=== PATIENT | female | born 1980 | race Two or more races ===

== ENCOUNTER 2017-09-22 19:57 | Inpatient (IN) | payer SELFPAY ==
[~2017-09-22] VITALS: Ht 154.9 cm; Wt 67.1 kg
[2017-09-22] MEDS ORDERED: Sodium Chloride 500ML 500 ML IV ONE (20:47)
[2017-09-22 21:30] VITALS: BP 116/55
[2017-09-22 21:35] LABS: HEMATOCRIT 23.9 % (37.0-47.0); MEAN CORPUSCULAR VOLUME 57 FL (80-99); PLATELET COUNT 345 K/UL (150-450); RED BLOOD COUNT 4.17 M/UL (4.20-5.40); RED CELL DISTRIBUTION WIDTH 17.3 % (11.6-14.8); WHITE BLOOD COUNT 6.4 K/UL (4.8-10.8)
[2017-09-22 21:37] LABS: APPEARANCE,URINE CLEAR; BILIRUBIN, URINE NEGATIVE (NEGATIVE); COLOR,URINE PALE YELLOW; GLUCOSE, URINE (UA) NEGATIVE (NEGATIVE); KETONES,URINE NEGATIVE (NEGATIVE); LEUKOCYTE ESTERASE ,URINE NEGATIVE (NEGATIVE); NITRITE,URINE NEGATIVE (NEGATIVE); PH,URINE 7 (4.5-8.0); PROTEIN,URINE NEGATIVE (NEGATIVE); UROBILINOGEN,URINE NORMAL MG/DL (0.0-1.0)
[2017-09-22 21:42] LABS: HEMOGLOBIN 6.5 G/DL (12.0-16.0)
[2017-09-22 21:44] LABS: ANION GAP 11 mmol/L (5-15); BLOOD UREA NITROGEN 9 mg/dL (7-18); CALCIUM 8.5 MG/DL (8.5-10.1); CARBON DIOXIDE 25 MMOL/L (21-32); CHLORIDE 99 MMOL/L (98-107); CREATININE 0.5 MG/DL (0.55-1.30); POTASSIUM 3.3 MMOL/L (3.5-5.1); SODIUM 135 MMOL/L (136-145)
[2017-09-22 21:49] LABS: ALANINE AMINOTRANSFERASE 17 U/L (12-78); ALBUMIN 3.7 G/DL (3.4-5.0); ALBUMIN/GLOBULIN RATIO 0.8 (1.0-2.7); ALKALINE PHOSPHATASE 68 U/L (46-116); ASPARTATE AMINO TRANSFERASE 15 U/L (15-37); BILIRUBIN,TOTAL 0.7 MG/DL (0.2-1.0)
--- NOTE | 2017-09-22 22:15 | Emergency Room Report ---
History of Present Illness General Chief Complaint: Abnormal Labs Source: Patient (Gurvinder Steiner MD) Present Illness HPI 37-year-old female presents ED for evaluation. Patient states she had abnormal labs done by her PMD. States she was anemic. States she's been feeling weak for the last week. Denies blood in stool. Denies vaginal bleeding. Denies vomiting. Denies any abdominal pain. No other aggravating relieving factors. Denies any other associated symptoms (Gurvinder Steiner MD) Allergies: Coded Allergies: No Known Allergies (Unverified , 09/22/17) Patient History Past Medical History: none Past Surgical History: none Pertinent Family History: none Social History: Denies: smoking, alcohol use, drug use Last Menstrual Period: aug 22 Now: Yes Immunizations: UTD Reviewed Nursing Documentation: PMH: Agreed; PSxH: Agreed (Gurvinder Steiner MD) Nursing Documentation-PMH Past Medical History: No Stated History (Gurvinder Steiner MD) Review of Systems All Other Systems: negative except mentioned in HPI (Gurvinder Steiner MD) Physical Exam Vital Signs Date Time Temp Pulse Resp B/P (MAP) Pulse Ox O2 Delivery O2 Flow Rate FiO2 09/22/17 20:04 97.5 86 18 122/59 98 Room Air 97.5 Sp02 EP Interpretation: reviewed, normal General Appearance: no apparent distress, alert, GCS 15, non-toxic Head: normocephalic, atraumatic Eyes: bilateral eye normal inspection, bilateral eye PERRL ENT: hearing grossly normal, normal pharynx, no angioedema, normal voice Neck: full range of motion, supple/symm/no masses Respiratory: chest non-tender, lungs clear, normal breath sounds, speaking full sentences Cardiovascular #1: regular rate, rhythm, no edema Cardiovascular #2: 2+ carotid (R), 2+ carotid (L), 2+ radial (R), 2+ radial (L) , 2+ dorsalis pedis (R), 2+ dorsalis pedis (L) Gastrointestinal: normal bowel sounds, non tender, soft, non-distended, no guarding, no rebound Rectal: deferred Genitourinary: normal inspection, no CVA tenderness Musculoskeletal: back normal, gait/station normal, normal range of motion, non- tender Neurologic: alert, oriented x3, responsive, motor strength/tone normal, sensory intact, speech normal Psychiatric: judgement/insight normal, memory normal, mood/affect normal, no suicidal/homicidal ideation Reflexes: 3+ bicep (R), 3+ bicep (L), 3+ tricep (R), 3+ tricep (L), 3+ knee (R) , 3+ knee (L) Skin: normal color, no rash, warm/dry, well hydrated Lymphatic: no adenopathy (Gurvinder Steiner MD) Medical Decision Making Diagnostic Impression: Primary Impression: Anemia Additional Impression: Labs Test 09/22/17 21:15 09/22/17 21:28 Urine Color Pale yellow Urine Appearance Clear Urine pH 7 (4.5-8.0) Urine Specific [place] 1.010 (1.005-1.035) Urine Protein Negative (NEGATIVE) Urine Glucose (UA) Negative (NEGATIVE) Urine Ketones Negative (NEGATIVE) Urine Occult Blood Negative (NEGATIVE) Urine Nitrite Negative (NEGATIVE) Urine Bilirubin Negative (NEGATIVE) Urine Urobilinogen Normal MG/DL (0.0-1.0) Urine Leukocyte Esterase Negative (NEGATIVE) Urine HCG, Qualitative Positive (NEGATIVE) White Blood Count 6.4 K/UL (4.8-10.8) Red Blood Count 4.17 M/UL (4.20-5.40) Hemoglobin 6.5 G/DL (12.0-16.0) Hematocrit 23.9 % (37.0-47.0) Mean Corpuscular Volume 57 FL (80-99) Mean Corpuscular Hemoglobin 15.7 PG (27.0-31.0) Mean Corpuscular Hemoglobin Concent 27.3 G/DL (32.0-36.0) Red Cell Distribution Width 17.3 % (11.6-14.8) Platelet Count 345 K/UL (150-450) Mean Platelet Volume 6.0 FL (6.5-10.1) Neutrophils (%) (Auto) % (45.0-75.0) Lymphocytes (%) (Auto) % (20.0-45.0) Monocytes (%) (Auto) % (1.0-10.0) Eosinophils (%) (Auto) % (0.0-3.0) Basophils (%) (Auto) % (0.0-2.0) Prothrombin Time 10.0 SEC (9.30-11.50) Prothromb Time International Ratio 1.0 (0.9-1.1) Activated Partial Thromboplast Time 24 SEC (23-33) Sodium Level 135 MMOL/L (136-145) Potassium Level 3.3 MMOL/L (3.5-5.1) Chloride Level 99 MMOL/L (98-107) Carbon Dioxide Level 25 MMOL/L (21-32) Anion Gap 11 mmol/L (5-15) Blood Urea Nitrogen 9 mg/dL (7-18) Creatinine 0.5 MG/DL (0.55-1.30) Estimat Glomerular Filtration Rate > 60 mL/min (>60) Glucose Level 97 MG/DL (74-106) Calcium Level 8.5 MG/DL (8.5-10.1) Total Bilirubin 0.7 MG/DL (0.2-1.0) Aspartate Amino Transf (AST/SGOT) 15 U/L (15-37) Alanine Aminotransferase (ALT/SGPT) 17 U/L (12-78) Alkaline Phosphatase 68 U/L (46-116) Total Protein 8.1 G/DL (6.4-8.2) Albumin 3.7 G/DL (3.4-5.0) Globulin 4.4 g/dL Albumin/Globulin Ratio 0.8 (1.0-2.7) (Gurvinder Steiner MD) ER Course I received signout from Dr. Steiner 37-year-old female, 8 weeks, sent for anemia by her doctor Patient denies any bloody stool, states that in the past her menstrual bleeding used to be heavy Complains of fatigue, no syncopal episodes no lightheadedness. Has never had a blood transfusion in the past Patient's hemoglobin noted to be 6.5, likely chronic iron deficiency anemia 2/2 to history. there is no hx of any active bleeding. Patient is hemodynamically stable with no active bleeding pt began transfusion in ED Patient will be admitted to [facility] DW Dr Morejon covering for Dr. Hendrickson Pelvic ultrasound Per radiology services manager, patient has IUP with good heart rate, 185 (Retino,Clairose M.D.) Last Vital Signs Date Time Temp Pulse Resp B/P (MAP) Pulse Ox O2 Delivery O2 Flow Rate FiO2 09/22/17 20:04 97.5 86 18 122/59 98 Room Air 97.5 Status: improved (Gurvinder Steiner MD) Disposition: ADMITTED INPATIENT Condition: Serious Gurvinder Steiner MD Sep 22, 2017 22:15 Samantha Plaza M.D. Sep 22, 2017 22:42
[2017-09-23] VITALS (7 sets, daily range): BP systolic 109–118; BP diastolic 52–63
[2017-09-23] MEDS ORDERED: NKM (00:44)
[2017-09-23 10:27] LABS: BASOPHILS % (AUTO) 0.7 % (0.0-2.0); EOSINOPHILS % (AUTO) 0.8 % (0.0-3.0); HEMATOCRIT 29.2 % (37.0-47.0); HEMOGLOBIN 8.3 G/DL (12.0-16.0); LYMPHOCYTES % (AUTO) 22.1 % (20.0-45.0); MEAN CORPUSCULAR VOLUME 63 FL (80-99); NEUTROPHILS % (AUTO) 65.4 % (45.0-75.0); PLATELET COUNT 317 K/UL (150-450); RED BLOOD COUNT 4.67 M/UL (4.20-5.40); RED CELL DISTRIBUTION WIDTH 22.8 % (11.6-14.8); WHITE BLOOD COUNT 6.2 K/UL (4.8-10.8)
[2017-09-23 10:43] LABS: ANION GAP 9 mmol/L (5-15); BLOOD UREA NITROGEN 8 mg/dL (7-18); CALCIUM 8.2 MG/DL (8.5-10.1); CARBON DIOXIDE 25 MMOL/L (21-32); CHLORIDE 104 MMOL/L (98-107); CREATININE 0.5 MG/DL (0.55-1.30); POTASSIUM 3.4 MMOL/L (3.5-5.1); SODIUM 138 MMOL/L (136-145)
--- NOTE | 2017-09-23 11:22 | Diagnostic Imaging Report ---
Indication: patient, vaginal bleeding, pain Technique: Transabdominal and transvaginal images Comparison: none Findings: Uterus measures 19.6 cm length by 7 cm AP. Within the endometrium, there is a gestational sac containing a pole. This demonstrates positive heart activity, heart rate 185 bpm. [employer]-rump length is 20 mm. This corresponds to an estimated gestational age of 8 weeks 4 days. No myometrial abnormality. Right ovary measures 3 cm in length. Left ovary measures 3 cm in length. No adnexal mass. No free cul-de-sac fluid Impression: 8 week 4 day, by crown-rump length measurements, single live anterior . Small subchorionic hemorrhage
[2017-09-23 11:30] LABS: FERRITIN 2 NG/ML (8-388)
[2017-09-23 11:32] LABS: % IRON SATURATION 4 % (15-50); IRON 17 ug/dL (50-175); TOTAL IRON BINDING CAPACITY 440 ug/dL (250-450)
--- NOTE | 2017-09-23 12:14 | History and Physical ---
History of Present Illness General Date patient seen: Sep 23, 2017 Time patient seen: 12:13 Reason for Hospitalization: Anemia Present Illness HPI 37y/o female with no sig pmh who presents with abnormal labs. Pt was sent by PCP for abnormal labs. Pt is abt 8 weeks . Pt denies f/c, n/v, d/c, chest pain, SOB, melena, BRBPR. Has history of heavy vaginal bleeding but not currently. Allergies: Coded Allergies: No Known Allergies (Unverified , 09/22/17) Medication History Scheduled Ascorbate Calcium (Vitamin C), 500 MG PO DAILY Ferrous Sulfate* (Ferrous Sulfate*), 325 MG ORAL TWICE A DAY No Known Medications* (NKM - No Known Medications*), 0 ., (Reported) Patient History History Provided By: Patient, Medical Record Healthcare decision maker Resuscitation status Full Code Advanced Directive on File Past Medical/Surgical History Past Medical/Surgical History: (1) No significant past medical history (2) No significant past surgical history Social History Social History: (1) No significant social history Review of Systems Constitutional: Reports: no symptoms Eye: Reports: no symptoms ENT: Reports: no symptoms Respiratory: Reports: no symptoms Cardiovascular: Reports: no symptoms Gastrointestinal: Reports: no symptoms Genitourinary: Reports: no symptoms Musculoskeletal: Reports: no symptoms Skin: Reports: no symptoms Psychiatric: Reports: no symptoms Neurological: Reports: no symptoms Endocrine: Reports: no symptoms Hematologic/Lymphatic: Reports: anemia Physical Exam Physical Exam Narrative General: alert, cooperative, no distress, appears stated age Head: normocephalic, without obvious abnormality, atraumatic Eyes: conjunctivae/corneas clear. PERRL, EOM's intact Throat: lips, mucosa, and tongue normal. MMM Neck: supple, symmetrical, trachea midline, and no JVD Lungs: clear to auscultation bilaterally Heart: regular rate and rhythm, S1, S2 normal, no murmur, click, rub or gallop Abdomen: soft, non-tender, non-distended, bowel sounds normal Extremities: extremities normal, atraumatic, no cyanosis or edema Pulses: 2+ and symmetric Skin: skin color, texture, turgor normal; no rashes or lesions Neurologic: grossly normal, no focal deficits Last 24 Hour Vital Signs Date Time Temp Pulse Resp B/P (MAP) Pulse Ox O2 Delivery O2 Flow Rate FiO2 09/23/17 08:35 97.7 68 18 110/59 99 Room Air 97.7 09/23/17 00:50 98.4 68 17 117/58 99 Room Air 98.4 09/23/17 00:47 99.2 74 18 112/52 100 Room Air 99.2 09/23/17 00:20 99.2 74 18 112/52 100 Room Air 99.2 09/23/17 00:10 99.3 75 18 99.3 09/23/17 00:10 99.3 75 18 109/55 100 Room Air 99.3 09/23/17 00:05 99.3 78 18 118/63 100 Room Air 99.3 09/23/17 00:05 99.3 78 18 99.3 09/22/17 21:30 97.5 75 18 116/55 100 Room Air 97.5 09/22/17 20:04 97.5 86 18 122/59 98 Room Air 97.5 Intake and Output 09/22/17 09/23/17 19:00 07:00 Intake Total 600 ml Balance 600 ml Intake Oral 100 ml IV Total 500 ml # Voids 1 Laboratory Tests Test 09/22/17 21:15 09/22/17 21:28 09/23/17 10:10 Urine Color Pale yellow Urine Appearance Clear Urine pH 7 (4.5-8.0) Urine Specific [place] 1.010 (1.005-1.035) Urine Protein Negative (NEGATIVE) Urine Glucose (UA) Negative (NEGATIVE) Urine Ketones Negative (NEGATIVE) Urine Occult Blood Negative (NEGATIVE) Urine Nitrite Negative (NEGATIVE) Urine Bilirubin Negative (NEGATIVE) Urine Urobilinogen Normal MG/DL (0.0-1.0) Urine Leukocyte Esterase Negative (NEGATIVE) Urine HCG, Qualitative Positive (NEGATIVE) White Blood Count 6.4 K/UL (4.8-10.8) 6.2 K/UL (4.8-10.8) Red Blood Count 4.17 M/UL (4.20-5.40) L 4.67 M/UL (4.20-5.40) Hemoglobin 6.5 G/DL (12.0-16.0) *L 8.3 G/DL (12.0-16.0) L Hematocrit 23.9 % (37.0-47.0) L 29.2 % (37.0-47.0) L Mean Corpuscular Volume 57 FL (80-99) L 63 FL (80-99) #L Mean Corpuscular Hemoglobin 15.7 PG (27.0-31.0) L 17.7 PG (27.0-31.0) L Mean Corpuscular Hemoglobin Concent 27.3 G/DL (32.0-36.0) L 28.4 G/DL (32.0-36.0) L Red Cell Distribution Width 17.3 % (11.6-14.8) H 22.8 % (11.6-14.8) H Platelet Count 345 K/UL (150-450) 317 K/UL (150-450) Mean Platelet Volume 6.0 FL (6.5-10.1) L 5.9 FL (6.5-10.1) L Neutrophils (%) (Auto) % (45.0-75.0) 65.4 % (45.0-75.0) Lymphocytes (%) (Auto) % (20.0-45.0) 22.1 % (20.0-45.0) Monocytes (%) (Auto) % (1.0-10.0) 11.0 % (1.0-10.0) H Eosinophils (%) (Auto) % (0.0-3.0) 0.8 % (0.0-3.0) Basophils (%) (Auto) % (0.0-2.0) 0.7 % (0.0-2.0) Differential Total Cells Counted 100 Neutrophils % (Manual) 68 % (45-75) Lymphocytes % (Manual) 25 % (20-45) Monocytes % (Manual) 6 % (1-10) Eosinophils % (Manual) 1 % (0-3) Basophils % (Manual) 0 % (0-2) Band Neutrophils 0 % (0-8) Platelet Estimate Adequate Platelet Morphology Normal Polychromasia 1+ Hypochromasia 3+ Anisocytosis 2+ Microcytosis 2+ Prothrombin Time 10.0 SEC (9.30-11.50) Prothromb Time International Ratio 1.0 (0.9-1.1) Activated Partial Thromboplast Time 24 SEC (23-33) Sodium Level 135 MMOL/L (136-145) L 138 MMOL/L (136-145) Potassium Level 3.3 MMOL/L (3.5-5.1) L 3.4 MMOL/L (3.5-5.1) L Chloride Level 99 MMOL/L (98-107) 104 MMOL/L (98-107) Carbon Dioxide Level 25 MMOL/L (21-32) 25 MMOL/L (21-32) Anion Gap 11 mmol/L (5-15) 9 mmol/L (5-15) Blood Urea Nitrogen 9 mg/dL (7-18) 8 mg/dL (7-18) Creatinine 0.5 MG/DL (0.55-1.30) L 0.5 MG/DL (0.55-1.30) L Estimat Glomerular Filtration Rate > 60 mL/min (>60) > 60 mL/min (>60) Glucose Level 97 MG/DL (74-106) 93 MG/DL (74-106) Calcium Level 8.5 MG/DL (8.5-10.1) 8.2 MG/DL (8.5-10.1) L Total Bilirubin 0.7 MG/DL (0.2-1.0) Aspartate Amino Transf (AST/SGOT) 15 U/L (15-37) Alanine Aminotransferase (ALT/SGPT) 17 U/L (12-78) Alkaline Phosphatase 68 U/L (46-116) Total Protein 8.1 G/DL (6.4-8.2) Albumin 3.7 G/DL (3.4-5.0) Globulin 4.4 g/dL Albumin/Globulin Ratio 0.8 (1.0-2.7) L Human Chorionic Gonadotropin, Quant 756835 mIU/mL (1-6) H Iron Level 17 ug/dL (50-175) L Total Iron Binding Capacity 440 ug/dL (250-450) Percent Iron Saturation 4 % (15-50) L Unsaturated Iron Binding 423 ug/dL (112-346) H Ferritin 2 NG/ML (8-388) L Vitamin B12 Level 460 PG/ML (193-986) Folate 16.5 NG/ML (8.6-58.9) Thyroid Stimulating Hormone (TSH) 4.789 uiU/mL (0.358-3.740) Height (Feet): 5 Height (Inches): 1.00 Weight (Pounds): 148 Medications Current Medications Medications (Trade) Dose Ordered Sig/Demond Route PRN Reason Start Time Stop Time Status Last Admin Dose Admin Dextrose (Dextrose 50%) STAT PRN IV Hypoglycemia 09/22/17 23:15 10/22/17 23:14 Sodium Chloride 1,000 ml @ 75 mls/hr [id number] IVLG 09/23/17 00:10 10/23/17 00:09 09/23/17 00:10 Assessment/Plan Problem List: (1) Anemia ICD Codes: D64.9 - Anemia, unspecified SNOMED: 674852907 (2) Assessment & Plan: U/S shows 8 week 4 day, by crown-rump length measurements, single live anterior ICD Codes: Z34.90 - Encounter for supervision of normal , unspecified , unspecified trimester SNOMED: 95082865 Status: stable Assessment/Plan Pt with iron deficiency anemia likely chronic given pt is asymptomatic. No active bleeding. Pt now s/p 2U pRBCs --> hgb went from 6.5 to 8.3 which is adequate response Start Ferrous sulfate 325mg BID + Vitamin C 500mg daily per heme/onc Stable for d/c today and outpt f/u with PCP Jo Ann Neumann M.D. Sep 23, 2017 12:14
[2017-09-23] MEDS ORDERED: FERROUS SULFAT325 MG ORAL (13:43)
[2017-09-23] MEDS ORDERED: VITAMIN C500 M7 PO (13:43)
--- NOTE | 2017-09-24 12:14 | Discharge Summary ---
Discharge Summary Discharge Summary Discharge Summary DATE OF ADMISSION: 09/22/2017 DATE OF DISCHARGE: 09/23/2017 BRIEF HOSPITAL COURSE: Patient is a 37-year-old female with no significant past medical history presented to ED due to abnormal labs. Patient was seen by PCP and is 8 weeks . She denied fever or chills, no nausea or vomiting, no diarrhea or constipation, no chest pain, no shortness of breath, no melena, no bright red blood per rectum. She had history of heavy vaginal bleed but not current. On evaluation at ED she was noted to have severe anemia, hemoglobin of 6.5, hematocrit of 23. Her platelet was normal. HCG was positive analysis was unremarkable. Pelvic and transvaginal ultrasound showed eight-week, 4 day by CRL measurement, single live anterior . She received 2 units packed RBC blood transfusion. Hemoglobin increased to 8.3 which is adequate response. She was started on ferrous sulfate 325 mg twice a day and vitamin C 500 mg daily per heme/onc. Patient stable for discharge and was advised to follow-up with PCP. FINAL DIAGNOSES: 1. Anemia requiring blood transfusion 2. DISPOSITION: Patient was discharged home. DISCHARGE MEDICATIONS: Refer to Discharge Medication List. Continue with ferrous sulfate and vitamin C. DISCHARGE INSTRUCTIONS: Follow up with PCP with in a week. I have been assigned to dictate discharge summary on this account, and I was not involved in the patient's management. Patricia Zhang NP Sep 24, 2017 12:14
== END 2017-09-23 17:30 | disposition home or self-care (01) | DRG 781 ==
LOC: EMR 20:25 → 4W 22:43 → EDBEDREQ 23:41
PROC: 30233N1 Transfusion of Nonautologous Red Blood Cells into Peripheral Vein, Percutaneous Approach (ICD-10-PCS; principal; 2017-09-22)
DX: O99.011 Anemia complicating pregnancy, first trimester (principal); D50.9 Iron deficiency anemia, unspecified; Z3A.08 8 weeks gestation of pregnancy
CPT/HCPCS: 36415; 76801; 76830; 80048; 80053; 81003; 81025; 82607; 82728; 82746; 83540; 83550; 84439; 84443; 84702; 85007; 85025; 85610; 85730; 86850; 86900; 86901; 86920; 99285